=== PATIENT | male | born 1955 | race Caucasian/White ===

== ENCOUNTER → 2016-11-27 | Outpatient (CLI) | payer MEDICARE, OTHER ==
[2016-11-27 11:26] LABS: Basophils % (A) 0 %; CH 33.5; CHCM 33.3; Eosinophils # (A) 0.2 k/uL (0-0.7); Eosinophils % (A) 4 %; HCT 51.5 % (39.0-53.0); HDW 2.51; HGB 16.8 gm/dL (13.0-17.5); Luc # (Auto) 0.14; Luc % (Auto) 2; Lymphocytes # (A) 1.5 k/uL (1.0-4.8); Lymphocytes % (A) 23 %; MCHC 32.6 g/dL (31.0-37.0); MCV 101.2 fL (80.0-100.0); Mean Platelet Volume 7.1; Monocytes # (A) 0.4 k/uL (0-1.0); Monocytes % (A) 6 %; Neutrophils # (A) 4.4 k/uL (1.3-7.7); Neutrophils % (A) 65 %; RBC 5.09 m/uL (4.30-5.90); RDW 12.7 % (11.5-15.5); WBC 6.7 k/uL (3.8-10.6); WBC (Perox) 6.89
[2016-11-27 12:32] LABS: ALT 30 U/L (21-72); AST 21 U/L (17-59); Alkaline Phosphatase 93 U/L (38-126); Anion Gap 11 mmol/L; Blood Urea Nitrogen 14 mg/dL (9-20); Calcium 9.4 mg/dL (8.4-10.2); Carbon Dioxide 20 mmol/L (22-30); Chloride 113 mmol/L (98-107); Cholesterol 219 mg/dL (<200); Glucose 101 mg/dL (74-99); HDL Cholesterol 65 mg/dL (40-60); Non-African American GFR(MDRD) >60 (>60 ml/min/1.73 sqM); Potassium 4.1 mmol/L (3.5-5.1); Sodium 144 mmol/L (137-145); Total Bilirubin 0.8 mg/dL (0.2-1.3); Total Protein 7.8 g/dL (6.3-8.2); Triglycerides 224 mg/dL (<150)
[2016-11-27 13:18] LABS: Hepatitis C Virus IgG Ab Negative (Negative); Hepatitis C Virus IgG Index 0.03
[2016-11-27 16:29] LABS: Prostate Specific Antigen 1.03 ng/mL (0.00-4.00)
== END | disposition home or self-care (01) ==
LOC: LABWHC1 10:53
PROVIDERS: ATTEND Family Medicine
DX: Z00.00 Encounter for general adult medical examination without abnormal findings (principal); Z11.9 Encounter for screening for infectious and parasitic diseases, unspecified; N40.0 Benign prostatic hyperplasia without lower urinary tract symptoms
CPT/HCPCS: 36415; 80053; 80061; 84153; 84443; 85025; 86803

== ENCOUNTER 2017-08-05 15:08 | Emergency (ER) | payer MEDICARE, OTHER ==
[2017-08-05] MEDS ORDERED: IPRATROPIUM-ALBUTEROL 3 ML NEB INHALATION STA (16:51)
--- NOTE | 2017-08-05 17:05 | ED ---
General Adult HPI - General Chief complaint: Upper Respiratory Infection Stated complaint: chest congestion/headache Time Seen by Provider: 08/05/17 16:35 Source: patient, RN notes reviewed Mode of arrival: ambulatory Limitations: no limitations - History of Present Illness Initial comments: This is a 62-year-old male who presents to the ED with a chief complaint of chest congestion which began 5 days ago. The patient states he has been coughing up green sputum, felt fatigued, had a sore throat and felt chest pressure when he coughs since 08/01/2017. The chest pressure is made worse with coughing and with laying supine. Patient has recently felt fatigued with mild activity which has been worsening. He admits a low grade fever, occasionally feeling nauseous, and complains of a headache today. He last took Fiorocet for the headache around 2pm today which helped, but did not provide complete relief of the headache. He has a history of CVA. He denies vomiting, diarrhea, or history of obstructive airway disease. - Related Data Home Medications Medication Instructions Recorded Confirmed Omeprazole [PriLOSEC] 20 mg PO AC-BRKFST 03/25/14 08/05/17 Ezetimibe [Zetia] 10 mg PO HS 08/05/17 08/05/17 Previous Rx's Medication Instructions Recorded Atorvastatin [Lipitor] 80 mg PO HS #30 tab 06/07/17 Dipyridamole-Aspirin 200-25 mg 1 tab PO BID #0 06/07/17 [Aggrenox 25MG -200MG] Topiramate [Topamax] 50 mg PO BID #60 tab 06/07/17 Albuterol Sulfate [Proair Hfa] 1 - 2 puff INHALATION Q4HR PRN #1 08/05/17 inhaler Levofloxacin [Levaquin] 500 mg PO DAILY #7 tab 08/05/17 Allergies Allergy/AdvReac Type Severity Reaction Status Date / Time No Known Allergies Allergy Verified 08/05/17 17:22 Review of Systems ROS Statement: Those systems with pertinent positive or pertinent negative responses have been documented in the HPI. ROS Other: All systems not noted in ROS Statement are negative. Past Medical History Past Medical History: CVA/TIA, GERD/Reflux, Hyperlipidemia Additional Past Medical History / Comment(s): SEE DR CALLAWAY H&P, MIGRAINE HEADACHES AND POOR VISION IN RIGHT EYE AND HEARING LOSS IN THE RT EAR, Five TIAs and one CVA History of Any Multi-Drug Resistant Organisms: None Reported Additional Past Surgical History / Comment(s): angiogram, LOOP RECORDER Past Anesthesia/Blood Transfusion Reactions: No Reported Reaction Past Psychological History: No Psychological Hx Reported Smoking Status: Never smoker Past Alcohol Use History: None Reported Past Drug Use History: None Reported - Past Family History Father Family Medical History: Cancer, Coronary Artery Disease (CAD), Myocardial Infarction (NH) Additional Family Medical History / Comment(s): AT AGE 74-CANCER Mother Family Medical History: Cancer Additional Family Medical History / Comment(s): COLON CANCER General Exam Limitations: no limitations Head exam: Present: atraumatic, normocephalic, normal inspection Eye exam: Present: normal appearance, PERRL, EOMI. Absent: scleral icterus, conjunctival injection, periorbital swelling Neck exam: Present: tenderness (Tender lymphadenopathy noted with palpation.), lymphadenopathy Respiratory exam: Present: decreased breath sounds Cardiovascular Exam: Present: regular rate, normal rhythm, normal heart sounds. Absent: systolic murmur, diastolic murmur, rubs, gallop, clicks Neurological exam: Present: alert, oriented X3, CN II-XII intact Psychiatric exam: Present: normal affect, normal mood Skin exam: Present: warm, dry, intact, normal color. Absent: rash Course Vital Signs 08/05/17 08/05/17 08/05/17 15:39 17:37 17:49 Temperature 97.5 F L Pulse Rate 61 64 72 Respiratory 18 Rate Blood Pressure 130/61 O2 Sat by Pulse 94 L Oximetry 08/05/17 18:33 Temperature Pulse Rate 95 Respiratory 16 Rate Blood Pressure 140/65 O2 Sat by Pulse 96 Oximetry EKG Findings - EKG Comments: EKG Findings:: EKG performed at 17:26 normal sinus rhythm his right bundle- branch block with noted inverted T waves in precordial leads this is unchanged from prior EKG on 06/05/2017 patient does have a rate of 67 VT 160, QRS 122 QT/ QTC 428/452 Medical Decision Making - Medical Decision Making 62-year-old male presented for cough congestion just wasn't feeling well. Influenza is negative chest x-ray shows some old scarring is no evidence of pneumonia. Patient's labwork reviewed no acute abnormality's and EKG is unchanged from prior. Patient we treated for treatment of bronchitis with antibiotics and he'll follow-up with them care physician and return for any worsening symptoms. - Lab Data Result diagrams: 08/05/17 17:14 08/05/17 18:24 Lab Results 08/05/17 08/05/17 08/05/17 Range/Units 15:51 17:14 17:14 WBC 10.0 (3.8-10.6) k/uL RBC 5.00 (4.30-5.90) m/uL Hgb 16.5 (13.0-17.5) gm/dL Hct 49.1 (39.0-53.0) % MCV 98.3 (80.0-100.0) fL MCH 33.0 (25.0-35.0) pg MCHC 33.6 (31.0-37.0) g/dL RDW 12.4 (11.5-15.5) % Plt Count 207 (150-450) k/uL Neutrophils % 70 % Lymphocytes % 16 % Monocytes % 8 % Eosinophils % 3 % Basophils % 0 % Neutrophils # 7.0 (1.3-7.7) k/uL Lymphocytes # 1.6 (1.0-4.8) k/uL Monocytes # 0.8 (0-1.0) k/uL Eosinophils # 0.3 (0-0.7) k/uL Basophils # 0.0 (0-0.2) k/uL PT 9.8 (9.0-12.0) sec INR 1.0 (<1.2) APTT 20.4 L (22.0-30.0) sec D-Dimer 0.49 (<0.60) mg/L FEU Sodium (137-145) mmol/L Potassium (3.5-5.1) mmol/L Chloride (98-107) mmol/L Carbon Dioxide (22-30) mmol/L Anion Gap mmol/L BUN (9-20) mg/dL Creatinine (0.66-1.25) mg/dL Est GFR (MDRD) Af Amer (>60 ml/min/1.73 sqM) Est GFR (MDRD) Non-Af (>60 ml/min/1.73 sqM) Glucose (74-99) mg/dL Calcium (8.4-10.2) mg/dL Total Bilirubin (0.2-1.3) mg/dL AST (17-59) U/L ALT (21-72) U/L Alkaline Phosphatase (38-126) U/L NT-Pro-B Natriuret Pep pg/mL Total Protein (6.3-8.2) g/dL Albumin (3.5-5.0) g/dL Influenza Type A RNA Not Detected (Not Detectd) Influenza Type B (PCR) Not Detected (Not Detectd) 08/05/17 08/05/17 Range/Units 17:14 18:24 WBC (3.8-10.6) k/uL RBC (4.30-5.90) m/uL Hgb (13.0-17.5) gm/dL Hct (39.0-53.0) % MCV (80.0-100.0) fL MCH (25.0-35.0) pg MCHC (31.0-37.0) g/dL RDW (11.5-15.5) % Plt Count (150-450) k/uL Neutrophils % % Lymphocytes % % Monocytes % % Eosinophils % % Basophils % % Neutrophils # (1.3-7.7) k/uL Lymphocytes # (1.0-4.8) k/uL Monocytes # (0-1.0) k/uL Eosinophils # (0-0.7) k/uL Basophils # (0-0.2) k/uL PT (9.0-12.0) sec INR (<1.2) APTT (22.0-30.0) sec D-Dimer (<0.60) mg/L FEU Sodium 144 (137-145) mmol/L Potassium 4.2 (3.5-5.1) mmol/L Chloride 107 (98-107) mmol/L Carbon Dioxide 22 (22-30) mmol/L Anion Gap 15 mmol/L BUN 12 (9-20) mg/dL Creatinine 1.10 (0.66-1.25) mg/dL Est GFR (MDRD) Af Amer >60 (>60 ml/min/1.73 sqM) Est GFR (MDRD) Non-Af >60 (>60 ml/min/1.73 sqM) Glucose 98 (74-99) mg/dL Calcium 9.4 (8.4-10.2) mg/dL Total Bilirubin 0.6 (0.2-1.3) mg/dL AST 35 (17-59) U/L ALT 52 (21-72) U/L Alkaline Phosphatase 126 (38-126) U/L NT-Pro-B Natriuret Pep 140 pg/mL Total Protein 7.6 (6.3-8.2) g/dL Albumin 4.5 (3.5-5.0) g/dL Influenza Type A RNA (Not Detectd) Influenza Type B (PCR) (Not Detectd) Disposition Clinical Impression: Tracheobronchitis Disposition: HOME SELF-CARE Condition: Stable Instructions: Acute Bronchitis (ED) Additional Instructions: Please return to the Emergency Department if symptoms worsen or any other concerns. Prescriptions: Albuterol Sulfate [Proair Hfa] 1 - 2 puff INHALATION Q4HR PRN #1 inhaler PRN Reason: difficulty in breathing Levofloxacin [Levaquin] 500 mg PO DAILY #7 tab Referrals: Luca Rashid MD [Primary Care Provider] - 1-2 days Time of Disposition: 19:32
--- NOTE | 2017-08-05 17:19 | XR ---
EXAMINATION TYPE: XR chest 2V DATE OF EXAM: 08/05/2017 COMPARISON: Prior chest x-ray 06/05/2017 HISTORY: Pain, cough TECHNIQUE: Frontal and lateral views of the chest are obtained. FINDINGS: There is no focal air space opacity, pleural effusion, or pneumothorax seen. The cardiac silhouette size is stable. There is eventration of the right hemidiaphragm. Bandlike densities within the right middle lobe, lingula likely represent scar. The osseous structures are intact. IMPRESSION: No acute cardiopulmonary process.
[2017-08-05 17:25] LABS: Basophils % (A) 0 %; Eosinophils # (A) 0.3 k/uL (0-0.7); Eosinophils % (A) 3 %; HCT 49.1 % (39.0-53.0); HGB 16.5 gm/dL (13.0-17.5); Lymphocytes # (A) 1.6 k/uL (1.0-4.8); Lymphocytes % (A) 16 %; MCHC 33.6 g/dL (31.0-37.0); MCV 98.3 fL (80.0-100.0); Mean Platelet Volume 8.7; Monocytes # (A) 0.8 k/uL (0-1.0); Monocytes % (A) 8 %; Neutrophils % (A) 70 %; Platelet Count 207 k/uL (150-450); RDW 12.4 % (11.5-15.5)
[2017-08-05 17:33] LABS: D-Dimer 0.49 mg/L FEU (<0.60)
[2017-08-05 18:00] LABS: Partial Thromboplastin Time 20.4 sec (22.0-30.0); Prothrombin Time 9.8 sec (9.0-12.0)
[2017-08-05] MEDS ORDERED: BUTALB/APAP/CAFF 50-325-40MG TAB PO STA (18:13)
[2017-08-05 19:07] LABS: ALT 52 U/L (21-72); AST 35 U/L (17-59); Albumin 4.5 g/dL (3.5-5.0); Alkaline Phosphatase 126 U/L (38-126); Anion Gap 15 mmol/L; Blood Urea Nitrogen 12 mg/dL (9-20); Calcium 9.4 mg/dL (8.4-10.2); Carbon Dioxide 22 mmol/L (22-30); Chloride 107 mmol/L (98-107); Glucose 98 mg/dL (74-99); Potassium 4.2 mmol/L (3.5-5.1); Sodium 144 mmol/L (137-145); Total Bilirubin 0.6 mg/dL (0.2-1.3); Total Protein 7.6 g/dL (6.3-8.2)
[2017-08-05 20:02] VITALS: BP 129/60; PULSE 70; RESP 18; TEMP 99
== END 2017-08-05 20:01 | disposition home or self-care (01) ==
LOC: EC 15:08
DX: J40 Bronchitis, not specified as acute or chronic (principal); E78.5 Hyperlipidemia, unspecified; K21.9 Gastro-esophageal reflux disease without esophagitis; Z86.73 Personal history of transient ischemic attack (TIA), and cerebral infarction without residual deficits; Z79.899 Other long term (current) drug therapy
CPT/HCPCS: 36415; 71046; 80053; 83880; 84484; 85025; 85379; 85610; 85730; 87502; 93005; 94640; 99284

== ENCOUNTER → 2025-01-06 | Outpatient (CLI) | payer MEDICARE ==
--- NOTE | 2025-01-06 12:40 | CA ---
Exercise Stress Test Report Name: Jean Pierre Gay Exam Date: 01/06/2025 11:17 Exam Location: [facility] Stress Ht (in): 69 Wt (lb): 200 BSA: 2.07 Ordering Phys: Willy Lozada MD Referring Phys: MARISELA Technologist: Milton Godwin Age: 69 Gender: M : 1955 Procedure CPT: Indications: R53.83 fatigue ICD-10 Codes: Patient History: CHEST PAIN, DIFFICULTY IN BREATHING, HTN, PRIOR STROKE, HYPERCHOLESTEROLEMIA, FAMILY HX OF HEART DISEASE Medications: ATORVASTATIN, MONTELUKAST, OMEPRAZOLE, BUTALBITAL, LISINOPRIL, ASA, PROPRANOLOL Meds past 24 hrs: Pretest Chest Pain: STRESS TEST Job Protocol Exercise Duration (min:sec): 06:[address] Depressions (mm): Angina Score: Crisostomo Score: Resting HR (bpm): 54 Peak HR (bpm): 112 Resting BP (mmHg): 121 / 87 Peak BP (mmHg): 203 / 107 MPHR: 151 Target HR: 128 % MPHR: 74 METS: 8.0 Total Dose: Peak Dose: Atropine: Double Product: 56092 BP Response: Stress Termination: Fatigue,DYSPNEA UNABLE TO CONTINUE Stress Symptoms: DIFFICULTY IN BREATHING Stress Summary: ECG ANALYSIS Resting ECG: Normal sinus rhythm normal axis nonspecific ST-T wave changes Stress ECG: Patient exercised on Job protocol for 6 and half minutes achieving 85% of predicted maximal heart rate without chest pain complaint of shortness of breath and could not exercise further there was worsening of baseline ST-T wave changes CONCLUSIONS Average exercise tolerance Inconclusive EKG portion of the stress test due to baseline EKG abnormalities Dr. Adán Dixon MD (Electronically Signed) Final Date: 06 January 2025 12:40
== END | disposition home or self-care (01) ==
LOC: RADNMMAIN 10:17
PROVIDERS: ATTEND Family Medicine
DX: I07.1 Rheumatic tricuspid insufficiency (principal); I34.0 Nonrheumatic mitral (valve) insufficiency; R53.83 Other fatigue; R94.31 Abnormal electrocardiogram [ECG] [EKG]
CPT/HCPCS: 93017